=== PATIENT | male | born 1975 | race Caucasian/White ===

== ENCOUNTER 2018-06-15 05:14 | Outpatient (CLI) | payer OTHER, SELFPAY ==
--- NOTE | 2018-06-15 08:19 | DI.US_ITS ---
SYMPTOMS/DIAGNOSIS: LUQ ABD PAIN, WT LOSS, R63.4, R10.12 ABDOMINAL ULTRASOUND: The visualized liver parenchyma is normal in appearance. There is no evidence of cholelithiasis or biliary dilatation. The pancreas appears intact as visualized. The aorta and IVC are of normal diameter. The spleen appears intact. There is a 28 mm in greatest diameter predominantly cystic right renal mass. This contains a couple of thin septations. No mural nodularity or internal echogenic seen. No increased flow on doppler evaluation. There is a small simple cyst of the left kidney measuring about 8 mm in diameter. No hydronephrosis identified on either side. Tiny echogenic foci are present in the left kidney which could represent small nonobstructing calculi. CONCLUSION: Negative abdominal ultrasound.
== END 2018-06-15 05:34 ==
PROVIDERS: PCP Family Medicine; Visit Provider Family Medicine
DX: R10.12 Left upper quadrant pain (principal); R63.4 Abnormal weight loss; N28.1 Cyst of kidney, acquired
CPT/HCPCS: 76700

== ENCOUNTER 2018-07-06 00:49 | Outpatient (CLI) | payer OTHER, SELFPAY ==
--- NOTE | 2018-07-06 08:59 | DI.CT_ITS ---
SYMPTOMS/DIAGNOSIS: WORSENING LEFT UPPER QUADRANT PAIN, R10.12 CT SCAN OF THE ABDOMEN: CT scan of the abdomen was performed following the uneventful administration of intravenous and oral contrast material. Comparison is 11/07/07. Comparison ultrasound is 06/15/18. The visualized lung bases are clear. There is no evidence of a hepatic mass. The portal, superior mesenteric and splenic veins are patent. The gallbladder is negative. There is no biliary ductal dilatation. The spleen, pancreas and adrenal glands are unremarkable. The right kidney shows normal enhancement. There is a 3.1 x 1.9 cm simple cyst in the mid upper pole of the right kidney. No solid right renal mass is seen. No obstruction is identified. The left kidney shows normal enhancement. There are a few tiny hypodense lesions. They are too small for further characterization, but likely reflect small cysts. There is a 0.8 cm round homogenously hypodense lesion in the inferior pole of the left kidney consistent with a cyst. The abdominal aorta is of normal caliber. No significant abdominal adenopathy, ascites or pneumoperitoneum is seen. The bowel is grossly unremarkable. No acute osseous abnormalities identified. IMPRESSION: 1. Bilateral simple renal cysts. 2. No evidence of an acute abdomen.
[2018-07-06] MEDS: Breeza Beverage 473 ML BTL PO (09:24)
[2018-07-06] MEDS: Omnipaque 350 MG/ML 100 ML BTL IJ (10:23)
== END 2018-07-06 01:09 ==
PROVIDERS: PCP Family Medicine; Visit Provider Family Medicine
DX: R10.12 Left upper quadrant pain (principal); N28.1 Cyst of kidney, acquired
CPT/HCPCS: 74160; J3490

== ENCOUNTER 2019-03-13 01:50 | Outpatient (CLI) | payer OTHER, SELFPAY ==
--- NOTE | 2019-03-13 08:50 | DI.CT_ITS ---
EXAM: CT CHEST W CLINICAL HISTORY: Chronic pain in ant ribs 7-8 for 2yrs +smoker, R07.81 PLEURODYNIA TECHNIQUE: Imaging Protocol: Axial computed tomography images with coronal and sagittal reformatted images were created and reviewed CONTRAST MATERIAL: Intravenous: Omnipaque 350 Contrast volume:70 cc's Contrast route:IV - Oral: No COMPARISON: CHEST 2 VIEWS PA,LAT from 07/20/2016 FINDINGS: Thyroid gland is unremarkable as visualized. The thoracic aorta is intact and of normal caliber. No aneurysm or dissection is appreciated. The pulmonary arteries are unremarkable. Heart size is with in normal limits. No significant pericardial effusion is present. No significant thoracic adenopath y is present. No pleural effusion or pneumothorax is present. No focal consolidating infiltrates ar e present. No noncalcified pulmonary nodules are seen. There is bilateral apical scarring present. The tracheobronchial tree is unremarkable. There is a 2.6 cm simple cyst in the upper pole of the r ight kidney. There are mild degenerative changes seen in the thoracic spine. No lytic or sclerotic lesion seen in the ribs. No acute or healing rib fractures present. IMPRESSION: 1. No evidence of a rib lesion 2. No acute pulmonary process. DATA REPOSITORY: All CT scans at this facility are submitted to the National Radiology Data Registry (NRDR) Dose Index Registry (DIR) with the [employer] (ACR). RADIATION OPTIMIZATION: All CT scans at this facility use at least one of these dose optimization te chniques: automated exposure control; mA and/or kV adjustment per patient size (includes targeted exa ms where dose is matched to clinical indication); or iterative reconstruction.
[2019-03-13] MEDS: Omnipaque 350 MG/ML 100 ML BTL IJ (09:12)
== END 2019-03-13 02:10 ==
PROVIDERS: PCP Family Medicine; Visit Provider Surgery
DX: R07.81 Pleurodynia (principal); F17.200 Nicotine dependence, unspecified, uncomplicated; J98.4 Other disorders of lung; N28.1 Cyst of kidney, acquired; G89.29 Other chronic pain
CPT/HCPCS: 71260; J3490

== ENCOUNTER 2019-04-24 00:06 | Outpatient (CLI) | payer OTHER, SELFPAY ==
--- NOTE | 2019-04-24 11:20 | DI.MRI_ITS ---
EXAM: MR THORACIC SPINE WO CLINICAL HISTORY: Chronic pain after fall, lt-sided radiculopathy, G89.29, M54.10, s/p rib fx 1-1/2 years ago. TECHNIQUE: Multiplanar multisequence MRI was performed. COMPARISON: CT CHEST W from 03/13/2019 FINDINGS: The marrow signal and cord signal are normal. There is no evidence of a disc herniation or central c anal stenosis. There are small endplate osteophytes projecting mainly anteriorly. There is minimal disc bulging at T6-7 and T7-8. There is no neural foraminal narrowing. There is a mild dextroscolio sis. IMPRESSION: Minimal degenerative changes, consistent with the patient's age.
== END 2019-04-24 00:26 ==
PROVIDERS: PCP Family Medicine; Visit Provider Surgery
DX: M54.14 Radiculopathy, thoracic region (principal); M47.24 Other spondylosis with radiculopathy, thoracic region
CPT/HCPCS: 72146

== ENCOUNTER → 2020-07-30 01:06 | Outpatient (CLI) | payer OTHER, SELFPAY ==
--- NOTE | 2020-07-30 08:15 | DI.DEXA_ITS ---
EXAM: XR DEXA BONE DENSITY W/WO MOON CLINICAL HISTORY: rib pain,H/O MULTIPLE RIB FXS,R07.81 TECHNIQUE: Routine DEXA evaluation of the lumbar spine, hip, or forearm. COMPARISON: No exams were available for comparison FINDINGS: Performed on a Hologic unit. Lateral image: No compression fracture evident. There is disc space narrowing at L5-S1 level. Also an element of anterolisthesis of L5 upon S1. Lumbar Spine total T-score: -1.3 Hip total T-score:-0.8. T-score of the femoral neck is -1.3. Forearm total T-score: -1.9 IMPRESSION: Bone mineral density measures in the osteopenia range. Fracture risk is moderate. Note: Any spine fracture indicates 5x risk for subsequent spine fracture and 2x risk for subsequent h ip fracture. World Health Organization criteria for BMD interpretation classify patients: Normal...... T- Score at or above -1.0 Osteopenic... T- Score between -1.0 and -2.5 Osteoporosis... T-Score at or below -2.5
== END ==
PROVIDERS: PCP Family Medicine; Visit Provider Family Medicine
DX: M85.89 Other specified disorders of bone density and structure, multiple sites (principal); R07.81 Pleurodynia
CPT/HCPCS: 77080

== ENCOUNTER 2023-10-16 15:43 | Emergency (ER) | payer OTHER, SELFPAY ==
[2023-10-16 15:49] VITALS: BP 117/73; PULSE 91; RESP 16; TEMP 36.6; O2SAT 97
--- NOTE | 2023-10-16 16:00 | DI.RAD_ITS ---
Exam(s) XR HAND LT COMPLETE EXAM: XR HAND LT COMPLETE CLINICAL HISTORY: laceration left hand. TECHNIQUE: 2D digital imaging was performed of the left hand. Three views were obtained. AP, later al and oblique views were obtained. COMPARISON: No exams were available for comparison FINDINGS: BONES: No definite acute fracture is present. There is a lucency seen partially through the waist of the scaphoid which may be artifactual. Please correlate with patient's clinical history. Follow-up as clinically appropriate. No bony destructive lesion is seen. There is a benign-appearing cyst in the distal aspect of the scaphoid. JOINTS: No dislocation present. SOFT TISSUE: Normal. No radiopaque foreign bodies. IMPRESSION: No radiopaque foreign body. No definite fracture. Please see the above discussion. DATA REPOSITORY: RADIATION DOSE DELIVERED:
--- NOTE | 2023-10-16 16:38 | W.ED.GENAD ---
Discharge Plan Disposition Patient Disposition: Home Condition: Stable Discharge Details Clinical Impression: Laceration of hand Primary Care Provider: Guy Heard ED Provider: Melanie Pandey Home Meds and New Rx's Prescriptions: Continued clindamycin phosphate 1 % solution 1 applic topical BID Qty: 30 3RF Rx Instructions: apply to soles of feet BID for 4 weeks buprenorphine-naloxone 8-2 mg film 0.75 film sublingual DAILY Qty: 21 0RF betamethasone valerate 0.1 % cream 1 applic TP BID PRN (Reason: skin irritation) Qty: 45 3RF ibuprofen 800 mg tablet 800 mg PO TID cyclobenzaprine 10 mg tablet 10 mg PO TID PRN (Reason: muscle spasm) Qty: 20 0RF ketoconazole 2 % cream 1 applic topical BID PRN (Reason: tinea versicolor) Qty: 60 1RF buprenorphine-naloxone 8-2 mg film 0.75 film sublingual DAILY Qty: 21 0RF trazodone 50 mg tablet 50 - 100 mg PO QHS Qty: 90 11RF Rx Instructions: start at 50 mg/night; increase to 100 mg as needed after 3 nights Discharge Instructions Instructions: Laceration (ED) Additional Instructions: Keep wound clean and dry Suture removal in 10 to 12 days, present to the emergency department and we will remove the Ibuprofen and Tylenol as needed for pain Watch for signs of infection, redness, swelling, discharge, fever, your x-ray has not been officially read by radiologist but I do not see any evidence of acute abnormality, I will call you if there is any discrepancy in the read Referrals: Guy Heard MD [Primary Care Provider] - Return if symptoms worsen Discharge Data Discharge Date/Time-TO BE ENTERED AT DEPARTURE: 10/16/23 16:58 HPI General Date/Time Provider Initiated Documentation: 10/16/23 15:53. HPI Narrative: 47-year-old male presents with laceration to dorsal aspect of left hand with a saws all. This was an accident. Unsure regarding his tetanus shot. Denies strength or sensation change. Related Data Home Medications Medication Instructions Recorded Confirmed betamethasone valerate 0.1 % 1 applic topical BID PRN skin 04/24/19 10/16/23 topical cream irritation #45 grams ibuprofen 800 mg tablet 800 mg PO TID 04/25/19 10/16/23 clindamycin phosphate 1 % topical 1 applic topical BID pitted 04/10/20 10/16/23 solution keratolysis #30 mL cyclobenzaprine 10 mg tablet 10 mg PO TID PRN muscle spasm #20 10/28/21 10/16/23 tabs ketoconazole 2 % topical cream 1 applic topical BID PRN tinea 11/24/22 10/16/23 versicolor #60 grams trazodone 50 mg tablet 50 - 100 mg (1 - 2 x 50 mg) PO QHS 02/27/23 10/16/23 #90 tabs buprenorphine 8 mg-naloxone 2 mg 0.75 film sublingual DAILY #21 ea 08/10/23 10/16/23 sublingual film buprenorphine 8 mg-naloxone 2 mg 0.75 film sublingual DAILY #21 ea 10/05/23 10/16/23 sublingual film Previous Rx's Medication Instructions Recorded betamethasone valerate 0.1 % 1 applic topical BID PRN skin 04/24/19 topical cream irritation #45 grams clindamycin phosphate 1 % topical 1 applic topical BID pitted 04/10/20 solution keratolysis #30 mL cyclobenzaprine 10 mg tablet 10 mg PO TID PRN muscle spasm #20 10/28/21 tabs ketoconazole 2 % topical cream 1 applic topical BID PRN tinea 11/24/22 versicolor #60 grams trazodone 50 mg tablet 50 - 100 mg (1 - 2 x 50 mg) PO QHS 02/27/23 #90 tabs buprenorphine 8 mg-naloxone 2 mg 0.75 film sublingual DAILY #21 ea 08/10/23 sublingual film buprenorphine 8 mg-naloxone 2 mg 0.75 film sublingual DAILY #21 ea 10/05/23 sublingual film Allergies Allergy/AdvReac Type Severity Reaction Status Date / Time No Known Allergies Allergy Verified 10/16/23 15:46 General Stated Complaint: Laceration CURTIS: 4 Exam Narrative Exam Narrative: 1 inch laceration noted to dorsal aspect of right hand, neurovascularly intact, brisk capillary refill, no additional evidence of trauma Course Vital Signs Vital signs: Vital Signs Temperature 36.6 C 10/16/23 15:49 Pulse 91 H 10/16/23 15:49 Respiratory Rate 16 10/16/23 15:49 Blood Pressure 117/73 10/16/23 15:49 Pulse Oximetry 97 10/16/23 15:49 Temperature 36.6 C 10/16/23 15:49 Temperature Source Temporal Artery Scan 10/16/23 15:49 Pulse 91 H 10/16/23 15:49 Respiratory Rate 16 10/16/23 15:49 Respiratory Effort Normal, Non-Labored 10/16/23 15:50 Blood Pressure 117/73 10/16/23 15:49 Blood Pressure Position Sitting 10/16/23 15:49 Pulse Oximetry 97 10/16/23 15:49 Oxygen Delivery Method Room Air 10/16/23 15:49 Oxygen Flow Rate 0 10/16/23 15:49 Pain Level 3 10/16/23 15:49 Procedures Laceration Laceration 1: Site: hand Side (If applicable): right Size (cm): 2.5 Description: linear Depth: simple, single layer Pre-repair: wound explored Skin layer closed with: nylon Number of sutures: 1 Technique: horizontal mattress Technique: simple, interrupted Medical Decision Making 48-year-old male presenting with laceration to left hand, x-ray does not show evidence of acute fracture per my review, pending radiology interpretation, neurovascularly intact, sutures placed, 1, horizontal mattress, will need removal in 10 to 12 days Signs and symptoms to return reviewed and patient expressed understanding, neurovascularly intact pre and postprocedure Quality:SDOH Health Related Social Needs: No Data to Display PFSH All Active Problems (Updated 10/16/23 @ 16:39 by JOSE Berg) Laceration of hand (Acute) Dental abscess (Acute) Foot lesion (Acute) Chronic constipation (Acute) Low back pain (Acute) Chronic insomnia (Acute) Adjustment disorder (Chronic) Tooth infection (Acute) Underweight (Acute) Tinea versicolor (Acute) Pitted keratolysis (Acute) Hyperhidrosis of feet (Acute) Opioid use disorder (Acute) Abdominal cramping in left flank (Acute) Guttate psoriasis (Acute) Rib pain on left side (Acute) Chronic pain disorder (Chronic) Chronic pain after traumatic injury (Acute) History of shoulder surgery (Acute) Depression (Chronic) LUQ pain (Chronic) Tobacco abuse disorder (Acute 09/08/16) Multiple closed fractures of ribs of both sides with routine healing (Acute 07/27/16) with some abd. pain Surgical History SHOULDER SURGERY 09/14/07; RIGHT SHOULDER Family History FAMILY HISTORY Essential hypertension Hyperlipidemia Mother Mental disorder SA ISSUES Alcohol abuse Substance abuse Father Diabetes Grandfather Heart disease Grandmother Diabetes CAD (coronary artery disease) Heart disease Myocardial infarction Social History (Updated 04/23/23 @ 12:36 by Sarah Carreno) Smoking/Tobacco Use Status: Current every day Tobacco Type: cigarettes Tobacco: How many years used: 25 Smokeless tobacco user: other (Cigarettes) Quit status: considering quitting Second Hand Exposure: Yes Smoking risk assessment performed?: Yes Alcohol Intake: former Drug use: Daily Substance use type: marijuana Details: on suboxone Adopted: No Caregiver/Support person: No Foster care: No Household members: spouse and children Housing: house Number of Children: 2 Communication Needs: None Education Level: college Details: some Do you need help understanding health information?: Never 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 Pets and animals: Yes Pets and animals: cat(s) and dog(s) Sexually active: Yes Do you think of yourself as: straight/heterosexual Current gender identity: male What is your relationship status?: How often do you talk on the phone with friends or family?: three or more times per week How often do you get together with friends or relatives?: once per week How often do you attend restorationist or roman catholic services?: 1-3 times per year Do you belong to any clubs or organized social groups?: no Panel score (0-1 are the most socially isolated patients): 2 What type of physical activity do you participate in: walking, aerobic, bicycling and other Details: gym Duration: 45-60 minutes/day Frequency: 3-4 times per week Jo/Congregational: Non orthodoxy Special jo needs: No Agree to transfusion: Yes Seatbelt use: always Helmet use: Yes Helmet use: always Drive intox or ride w/intox bulk driver: No Working smoke detector in home: Yes Carbon monox detector in home: Yes Firearms in home: Yes Firearms unloaded and locked: Yes Do you feel safe at home: Yes Do you feel safe in your relationship?: Yes Victim of physical abuse: No Victim of emotional abuse: No Victim of sexual abuse: No Would you like helpful sources: No
[2023-10-16 16:57] VITALS: BP 117/73; PULSE 91; RESP 16; TEMP 36.6; O2SAT 97
== END 2023-10-16 16:58 | disposition home or self-care (01) ==
PROVIDERS: Emergency Provider Physician Assistant; PCP Family Medicine
DX: S61.412A Laceration without foreign body of left hand, initial encounter (principal); F17.210 Nicotine dependence, cigarettes, uncomplicated; Z23 Encounter for immunization; W27.0XXA Contact with workbench tool, initial encounter
CPT/HCPCS: 12001; 90471; 90715; 99283; 73130

== ENCOUNTER 2024-01-30 15:37 | Emergency (ER) | payer OTHER, SELFPAY ==
[2024-01-30 15:40] VITALS: BP 114/71; PULSE 103; RESP 16; TEMP 36.9; O2SAT 94
[2024-01-30 15:56] VITALS: BP 114/71; PULSE 103; RESP 16; TEMP 36.9; O2SAT 94
--- NOTE | 2024-01-30 16:00 | DI.CT_ITS ---
Exam(s) CT LOWER EXTREMITY LT W EXAM: CT LOWER EXTREMITY LT W CLINICAL HISTORY: swelling, red to L foot between 4th and 5th toes. TECHNIQUE: Imaging Protocol: Axial computed tomography images with coronal and sagittal reformatted images were created and reviewed. CONTRAST MATERIAL: Intravenous: Omnipaque 350 Contrast volume:structured data in ml Contrast route:I V - Oral: yes / no COMPARISON: No exams were available for comparison FINDINGS: OSSEOUS: No fractures evident. No osseous lesions. No evidence of osteomyelitis SOFT TISSUES: There is soft tissue swelling and skin thickening over the dorsal lateral aspect foot. No obvious collection to suggest an abscess. IMPRESSION: Soft tissue findings over the dorsal lateral aspect of the foot without evidence of an obvious absces s. No ulcer noted. No fractures. No evidence of osteomyelitis. No radiopaque foreign bodies RADIATION DOSE DELIVERED: 104.78mGy.cm Total DLP DATA REPOSITORY: All CT scans at this facility are submitted to the National Radiology Data Registry (NRDR) Dose Index Registry (DIR) with the [employer] (ACR). RADIATION OPTIMIZATION: All CT scans at this facility use at least one of these dose optimization te chniques: automated exposure control; mA and/or kV adjustment per patient size (includes targeted exa ms where dose is matched to clinical indication); or iterative reconstruction.
--- NOTE | 2024-01-30 16:06 | W.ED.GENAD ---
Discharge Plan Disposition Patient Disposition: Home Discharge Details Clinical Impression: Cellulitis of foot, left Primary Care Provider: Guy Heard ED Provider: Leonila Ray Home Meds and New Rx's Prescriptions: New amoxicillin 875 mg tablet 875 mg PO BID Qty: 14 0RF doxycycline hyclate 100 mg capsule 100 mg PO BID Qty: 14 0RF Continued clindamycin phosphate 1 % solution 1 applic topical BID Qty: 30 3RF Rx Instructions: apply to soles of feet BID for 4 weeks betamethasone valerate 0.1 % cream 1 applic TP BID PRN (Reason: skin irritation) Qty: 45 3RF ibuprofen 800 mg tablet 800 mg PO TID cyclobenzaprine 10 mg tablet 10 mg PO TID PRN (Reason: muscle spasm) Qty: 20 0RF ketoconazole 2 % cream 1 applic topical BID PRN (Reason: tinea versicolor) Qty: 60 1RF buprenorphine-naloxone 8-2 mg film 0.75 film sublingual DAILY Qty: 21 0RF trazodone 50 mg tablet 50 - 100 mg PO QHS Qty: 90 11RF Rx Instructions: start at 50 mg/night; increase to 100 mg as needed after 3 nights Discharge Instructions Instructions: Cellulitis (Skin Infection), Adult ED Additional Instructions: Please follow-up with Dr. Heard on as scheduled. I have also placed a referral to podiatry, I recommend that you follow-up if your foot is not looking significantly better in the next 3 to 4 days. Please take the antibiotics as prescribed. I prescribed you 2 antibiotics, amoxicillin and doxycycline. Please note that the doxycycline may cause you to have a photosensitivity rash, which resulted in blistering sunburn in the sun. Be sure to keep out of the sun while you are on this medication, and use SPF 50 and long sleeves if you have to go outside. I recommend you wash your foot with antibacterial soap and water, then apply a thin layer of Neosporin or bacitracin. You may use a piece of gauze between your toes to help with rubbing/irritation. Return to emergency care if you develop new fevers, uncontrollable vomiting, worsening swelling/redness, or if you are very worried and need to be rechecked again immediately. Referrals: Sherri Ferrara DPM [[facility]] - HPI <Leonila Pope - Last Filed: 01/30/24 18:24> General Date/Time Provider Initiated Documentation: 01/30/24 15:45. HPI Narrative: Braden is a 48-year-old male who presents to the emergency department today for evaluation of redness and swelling between his fourth and fifth toes of his left foot. He reports symptoms started about 1 week ago, with irritation between the toes. For 5 days ago he developed to discomfort, then redness and swelling 2 or 3 days ago. He developed significant discomfort and a white spot between his toes, with extension of the pain and swelling up to his ankle today. This is accompanied by feeling hot with generalized bodyaches. He is able to ambulate, but says weightbearing causes pain. He denies other rashes, drainage from lesion, joint swelling, or known trigger/rash. He does report that when he and his looked between his toes he did notice a reddish spot, would like a bug bite that had scabbed and healed over. He denies history of immunocompromise, diabetes, IV drug use or MRSA. He is up-to-date for tetanus. Physical exam remarkable for significant swelling to the dorsum of the left foot with warmth and tenderness. Faint petechiae noted to the left lateral ankle. There is a significant area of redness and swelling between the fourth and fifth toes, no obvious drainage or lesions. Sensation is intact to distal toes, brisk cap refill. Easy work of breathing, lung sounds clear bilaterally. Normal heart sounds. Abdomen soft, nondistended, nontender to palpation. D/dx includes but is not limited to: necrotizing fasciitis, cellulitis, abscess I independently interpreted the following tests: CBC notable for mild leukocytosis, white cell count 11.41. CMP notable for mildly elevated BUN, 22. CRP very elevated at 5.49. Sed rate reassuring. Vital signs initially showed tachycardia with heart rate 103, this resolved without intervention, heart rate back to 72. US performed by Dr [place], no obvious abscess or air. CT of left lower extremity performed, findings suggestive of cellulitis with no abscess formation or osteomyelitis. Overall workup today reassuring, no concern for serious systemic illness requiring IV antibiotics and inpatient admission at this time. Will treat patient for cellulitis of left foot with MRSA coverage, amoxicillin and doxycycline. He does have an appointment with PCP on , recommend follow-up with podiatry as needed. Reviewed discharge instructions, including skin care and red flags indicating need for return to emergency care. He voices agreement with plan of care. First dose of antibiotics given in the emergency department. Related Data Home Medications ?Medication ?Instructions ?Recorded ?Confirmed betamethasone valerate 0.1 % 1 applic topical BID PRN skin 04/24/19 01/30/24 topical cream irritation #45 grams ibuprofen 800 mg tablet 800 mg PO TID 04/25/19 01/30/24 clindamycin phosphate 1 % topical 1 applic topical BID pitted 04/10/20 01/30/24 solution keratolysis #30 mL cyclobenzaprine 10 mg tablet 10 mg PO TID PRN muscle spasm #20 10/28/21 01/30/24 tabs ketoconazole 2 % topical cream 1 applic topical BID PRN tinea 11/24/22 01/30/24 versicolor #60 grams trazodone 50 mg tablet 50 - 100 mg (1 - 2 x 50 mg) PO QHS 02/27/23 01/30/24 #90 tabs buprenorphine 8 mg-naloxone 2 mg 0.75 film sublingual DAILY #21 ea 08/10/23 01/30/24 sublingual film amoxicillin 875 mg tablet 875 mg PO BID #14 tabs 01/30/24 doxycycline hyclate 100 mg capsule 100 mg PO BID #14 caps 01/30/24 Previous Rx's ?Medication ?Instructions ?Recorded betamethasone valerate 0.1 % 1 applic topical BID PRN skin 04/24/19 topical cream irritation #45 grams clindamycin phosphate 1 % topical 1 applic topical BID pitted 04/10/20 solution keratolysis #30 mL cyclobenzaprine 10 mg tablet 10 mg PO TID PRN muscle spasm #20 10/28/21 tabs ketoconazole 2 % topical cream 1 applic topical BID PRN tinea 11/24/22 versicolor #60 grams trazodone 50 mg tablet 50 - 100 mg (1 - 2 x 50 mg) PO QHS 02/27/23 #90 tabs buprenorphine 8 mg-naloxone 2 mg 0.75 film sublingual DAILY #21 ea 08/10/23 sublingual film amoxicillin 875 mg tablet 875 mg PO BID #14 tabs 01/30/24 doxycycline hyclate 100 mg capsule 100 mg PO BID #14 caps 01/30/24 Allergies Allergy/AdvReac Type Severity Reaction Status Date / Time No Known Allergies Allergy Verified 01/30/24 15:45 General Stated Complaint: GenMedical CURTIS: 3 Review of Systems <Leonlia Lee Filed: 01/30/24 18:24> Narrative: see HPI Exam <Leonila Lee Filed: 01/30/24 18:24> Const General: cooperative, healthy appearing, comfortable, no acute distress and well developed Nutritional Appearance: average body habitus Resp Effort & Inspection: normal respiratory effort and able to speak in complete sentences Auscultation: clear to auscultation bilaterally Cardio Rate: tachycardic Rhythm: regular rhythm Pulses: normal peripheral pulses GI Inspection: normal to inspection Palpation: soft and nontender Skin Rashes: rashes noted left dorsal foot color (erythematous) and tender; fluctuant not assessed and other (faint petechia noted to L ankle) Course <Leonila Lee Filed: 01/30/24 18:24> Vital Signs Vital signs: Vital Signs Temperature 36.9 C 01/30/24 15:40 Pulse 103 H 01/30/24 15:40 Respiratory Rate 16 01/30/24 15:40 Blood Pressure 114/71 01/30/24 15:40 Pulse Oximetry 94 01/30/24 15:40 Temperature 36.9 C 01/30/24 15:56 Pulse 103 H 01/30/24 15:56 Respiratory Rate 16 01/30/24 15:56 Respiratory Effort Normal 01/30/24 15:47 Blood Pressure 114/71 01/30/24 15:56 Pulse Oximetry 94 01/30/24 15:56 Oxygen Delivery Method Room Air 01/30/24 15:56 Oxygen Flow Rate 0 01/30/24 15:56 Pain Level 0 01/30/24 15:56 Comment 10 when walking 01/30/24 15:56 Medical Decision Making <Leonila Matias Filed: 01/30/24 18:24> Imaging Data Radiologic Study: Radiologist's impression: Exam: CT Left Lower Extremity, Foot Exam date and time: 01/30/2024 5:03 PM Age: 48 years old Clinical indication: Other: Swelling, red to L foot between 4th and 5th toes TECHNIQUE: Imaging protocol: CT of the left lower extremity with intravenous contrast was performed. Exam focused on the foot. Contrast material: OMNIPAQUE 350; Contrast volume: 100 ml; Contrast route: INTRAVENOUS (IV); COMPARISON: No relevant prior studies available. FINDINGS: Bones/joints: No periosteal reaction or cortical erosions to suggest changes of osteomyelitis. Soft tissues: There is subcutaneous fat stranding and skin thickening at the dorsal lateral aspect of the foot and lateral ankle. No collections are seen. IMPRESSION: Findings suggestive of cellulitis at the lateral ankle and dorsal lateral aspect of the foot. No abscess formation. No changes of osteomyelitis. Quality:SDOH Health Related Social Needs: No Data to Display PFSH <Leonila Pope - Last Filed: 01/30/24 18:24> All Active Problems (Updated 01/30/24 @ 18:15 by Leonila Pope) Cellulitis of foot, left (Acute) Dental abscess (Acute) Foot lesion (Acute) Chronic constipation (Acute) Low back pain (Acute) Chronic insomnia (Acute) Adjustment disorder (Chronic) Tooth infection (Acute) Underweight (Acute) Tinea versicolor (Acute) Pitted keratolysis (Acute) Hyperhidrosis of feet (Acute) Opioid use disorder (Acute) Abdominal cramping in left flank (Acute) Guttate psoriasis (Acute) Rib pain on left side (Acute) Chronic pain disorder (Chronic) Chronic pain after traumatic injury (Acute) History of shoulder surgery (Acute) Depression (Chronic) LUQ pain (Chronic) Tobacco abuse disorder (Acute 09/08/16) Multiple closed fractures of ribs of both sides with routine healing (Acute 07/27/16) with some abd. pain Surgical History SHOULDER SURGERY 09/14/07; RIGHT SHOULDER Family History FAMILY HISTORY Essential hypertension Hyperlipidemia Mother Mental disorder SA ISSUES Alcohol abuse Substance abuse Father Diabetes Grandfather Heart disease Grandmother Diabetes CAD (coronary artery disease) Heart disease Myocardial infarction Social History (Updated 04/23/23 @ 12:36 by Sarah Carreno) Smoking/Tobacco Use Status: Current every day Tobacco Type: cigarettes Tobacco: How many years used: 25 Smokeless tobacco user: other (Cigarettes) Quit status: considering quitting Second Hand Exposure: Yes Smoking risk assessment performed?: Yes Alcohol Intake: former Drug use: Daily Substance use type: marijuana Details: on suboxone Adopted: No Caregiver/Support person: No Foster care: No Household members: spouse and children Housing: house Number of Children: 2 Communication Needs: None Education Level: college Details: some Do you need help understanding health information?: Never 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 Pets and animals: Yes Pets and animals: cat(s) and dog(s) Sexually active: Yes Do you think of yourself as: straight/heterosexual Current gender identity: male What is your relationship status?: How often do you talk on the phone with friends or family?: three or more times per week How often do you get together with friends or relatives?: once per week How often do you attend orthodox or pentecostalism services?: 1-3 times per year Do you belong to any clubs or organized social groups?: no Panel score (0-1 are the most socially isolated patients): 2 What type of physical activity do you participate in: walking, aerobic, bicycling and other Details: gym Duration: 45-60 minutes/day Frequency: 3-4 times per week Jo/Uatsdin: Non religion Special jo needs: No Agree to transfusion: Yes Seatbelt use: always Helmet use: Yes Helmet use: always Drive intox or ride w/intox motor vehicle escort driver: No Working smoke detector in home: Yes Carbon monox detector in home: Yes Firearms in home: Yes Firearms unloaded and locked: Yes Do you feel safe at home: Yes Do you feel safe in your relationship?: Yes Victim of physical abuse: No Victim of emotional abuse: No Victim of sexual abuse: No Would you like helpful sources: No POCUS Exam (ED) <Leonila Pope - Last Filed: 01/30/24 18:24> Limited Soft Tissue Exam LOCATION OF EXAM: Lower extremity/left PERTINENT FINDINGS/IMPRESSION: Cobblestoning dorsum of L foot and Fluid collection n/a . <Vesta Gonzalez MD - Last Filed: 01/30/24 16:15> Limited Soft Tissue Exam DATE OF EXAM: 01/30/24 TIME OF EXAM: 16:14 PROVIDER THAT PERFORMED THE STUDY: Vesta Gonzalez IS THIS A REPEAT EXAM DURING THIS ENCOUNTER: No LOCATION OF EXAM: Lower extremity/left REASON FOR EXAM: Pain, Redness and Swelling VISUALIZED STRUCTURES: Fascia, Skin and Subcutaneous tissue PERTINENT FINDINGS/IMPRESSION: Cobblestoning and Fluid collection. Exam Complete DIFFERENTIAL DIAGNOSES: Cellulitis, abscess, NSTI
[2024-01-30 16:25] LABS: Abs Immature Grans 0.06 10^3/uL (0.0-0.06); Absolute Eosinophil Count 0.03 10^3/uL (0.0-0.7); Absolute Lymphocyte Count 1.06 10^3/uL (1.2-3.4); Absolute Monocyte Count 1.16 10^3/uL (0.1-0.8); Basophils % 0.4 %; Eosinophils % 0.3 %; HCT 40.9 % (40.0-50.0); HGB 14.1 g/dL (13.5-17.5); Immature Grans % 0.5 %; Lymphocytes % 9.3 %; MCH 32.8 pg (27.0-33.0); MCHC 34.5 % (32.0-36.0); MCV 95 fL (80-95); MPV 9.9 fL (8.0-11.0); Monocytes % 10.2 %; Neutrophils % 79.3 %; Platelet Count 159 10^3/uL (130-400); RDW 13.3 % (11.8-14.1); RDW-SD 46.5 fL; WBC 11.41 10^3/uL (4.4-10.8)
[2024-01-30 16:33] LABS: ESR 5 mm/hr (0-15)
[2024-01-30 16:39] LABS: C-Reactive Protein 5.49 mg/dL (<or=0.5)
[2024-01-30 16:42] LABS: ALT 19 U/L (16-63); AST 25 U/L (15-37); Alkaline Phosphatase 60 U/L (46-116); Anion Gap 8.5 mmol/L (3-11); BUN 22 mg/dL (7-18); Bilirubin, Total 0.69 mg/dL (0.2-1.0); CO2 27.5 mmol/L (21.0-32.0); CREATININE 1.1 mg/dL (0.70-1.30); Chloride 102 mmol/L (98-107); Estimated GFR 83.32 (mL/min/1.73m2); Glucose 75 mg/dL (74-106); Magnesium 1.8 mg/dL (1.8-2.4); Sodium 138 mmol/L (136-145); Total Protein 6.8 g/dL (6.4-8.2)
[2024-01-30 16:43] LABS: Absolute Basophil Count 0.05 10^3/uL (0.0-0.2); Absolute Neutrophil Count 9.05 10^3/uL (1.2-6.7)
[2024-01-30 16:50] VITALS: BP 121/70; PULSE 72; RESP 18; TEMP 36.8; O2SAT 97
[2024-01-30] MEDS: Normal Saline - Diluent 50 ML VIAL IJ (17:11)
[2024-01-30] MEDS: Omnipaque 350 MG/ML 100 ML BTL IJ (17:12)
--- NOTE | 2024-01-30 18:02 | DI.VRAD_ITS ---
PROCEDURE INFORMATION: Exam: CT Left Lower Extremity, Foot Exam date and time: 01/30/2024 5:03 PM Age: 48 years old Clinical indication: Other: Swelling, red to L foot between 4th and 5th toes TECHNIQUE: Imaging protocol: CT of the left lower extremity with intravenous contrast was performed. Exam focused on the foot. Contrast material: OMNIPAQUE 350; Contrast volume: 100 ml; Contrast route: INTRAVENOUS (IV); COMPARISON: No relevant prior studies available. FINDINGS: Bones/joints: No periosteal reaction or cortical erosions to suggest changes of osteomyelitis. Soft tissues: There is subcutaneous fat stranding and skin thickening at the dorsal lateral aspect of the foot and lateral ankle. No collections are seen. IMPRESSION: Findings suggestive of cellulitis at the lateral ankle and dorsal lateral aspect of the foot. No abscess formation. No changes of osteomyelitis. Dictated and Authenticated by: Jaydon Soares MD. Ordering:SHANDA Keen MD
[2024-01-30 18:22] VITALS: BP 115/74; PULSE 75; TEMP 36.8; O2SAT 99
[2024-01-30] MEDS: Amoxicillin 875 MG TAB PO (18:22)
[2024-01-30] MEDS: Doxycycline Hyclate 100 MG CAP PO (18:22)
== END 2024-01-30 18:33 | disposition home or self-care (01) ==
PROVIDERS: Emergency Provider Nurse Practitioner Family; PCP Family Medicine
DX: L03.116 Cellulitis of left lower limb (principal)
CPT/HCPCS: 36415; 76882; 80053; 85652; 99285; 73701; 83735; 85025; 86140; 99283; J3490

== ENCOUNTER 2025-01-29 00:20 | Outpatient (CLI) | payer OTHER, SELFPAY ==
--- NOTE | 2025-01-29 | DI.US_ITS ---
Exam(s) US BREAST LT COMPLETE US BREAST RT COMPLETE MG MAMMO DIAGNOSTIC BI EXAM: MG MAMMO DIAGNOSTIC BI and U/S breast bilateral complete CLINICAL HISTORY: rt breast lump/pain,n63.0,n64.4. TECHNIQUE: Craniocaudal and mediolateral oblique Full Field Digital Mammography views of the bilateral breast with Computer Aided Diagnosis followed by Tomosynthesis and complete bilateral breast ultrasound. All 4 quadrants of the breasts, retroareolar region and axilla were evaluated sonographically. COMPARISON: There are no priors for comparison. FINDINGS: Mammography/Tomosynthesis: Masses/Architectural Distortion: There is asymmetric breast tissue in the retroareolar regions bilaterally, right greater than left. No areas of architectural distortion are seen. No suspicious masses are present. Microcalcifictions: No suspicious pleomorphic-type are seen. Skin Thickening/Nipple Retraction: None. Complete bilateral breast US: Echotexture: Hypoechoic tissue is seen in the retroareolar regions of both breast, right greater than left consistent with gynecomastia. Shadowing: No suspicious foci. Cyst: None. Solid lesions: None seen. Ductal dilation: None. IMPRESSION: 1. No evidence of malignancy is noted. There is bilateral gynecomastia, right greater than left. 2. Unless there is more urgent need, no follow-up is recommended at this time. 3. The findings were discussed with the patient on the date of the examination. BI-RADS Category 2 - Benign Findings Breast Density - Category B - There are scattered areas of fibroglandular density. Breast density Category C or D implies that the patient has dense breast tissue. Dense breast tissue can make it harder to find cancer on a mammogram. Dense breast tissue is also associated with an increased risk of breast cancer. This information about the result of the mammogram report was provided to the patient to raise their awareness. Use this report when you speak with the patient about their risks for breast cancer, which includes their family history. At that time, you may recommend additional screening tests (Ultrasound or MRI) as these tests may add significant information. A negative radiographic report should not delay biopsy if a dominant or clinically suspicious mass is present. Up to ten percent of cancers are not identified on mammography. A negative report may reinforce clinical impression. Adenosis and dense breasts may obscure an underlying neoplasm. False positive reports average 6 to 10%. Patient will receive a letter notifying them of these results.
== END 2025-01-29 00:40 ==
LOC: DI 00:21
PROVIDERS: PCP Family Medicine; Visit Provider Family Medicine
DX: Z12.31 Encounter for screening mammogram for malignant neoplasm of breast (principal); N64.4 Mastodynia; N62 Hypertrophy of breast
CPT/HCPCS: 76642; 77062; 77066; G0279